=== PATIENT | female | born 1945 | race Caucasian/White ===

== ENCOUNTER 2020-09-09 16:28 | Emergency (ER) | payer OTHER ==
[~2020-09-09] VITALS: Ht 175.3 cm; Wt 72.6 kg
[2020-09-09 17:50] VITALS: BP 131/63
[2020-09-09 18:12] LABS: URINE BILIRUBIN NEGATIVE (Negative); URINE BLOOD TRACE (Negative); URINE CLARITY CLEAR; URINE COLOR YELLOW; URINE GLUCOSE-RANDOM* NEGATIVE (Negative); URINE KETONES NEGATIVE (Negative); URINE NITRITE-REFLEX NEGATIVE (Negative); URINE PROTEIN (DIPSTICK) 2+ (Negative); URINE SPECIFIC GRAVITY 1.015 (1.005-1.035); URINE UROBILINOGEN 0.2 E.U./dl (0.2-1.0)
[2020-09-09 18:13] LABS: URINE LEUKOCYTES-REFLEX 1+ (Negative)
[2020-09-09 18:22] LABS: SQUAMOUS >10 Many /LPF (0-3); URINE WBC-REFLEX 6-15 Few /HPF (0-5)
[2020-09-09 18:23] LABS: CASTS None Seen /LPF (None Seen); CRYSTALS None Seen /LPF (None Seen); URINE RBC 0-2 Rare /HPF (0-2)
[2020-09-09] MEDS ORDERED: BACTRIM DS TAB1 EAC1 PO (18:55)
== END 2020-09-09 19:11 | disposition home or self-care (01) ==
LOC: ER 16:28
PROVIDERS: Nurse Practitioner Family
DX: N39.0 Urinary tract infection, site not specified (principal); Z91.041 Radiographic dye allergy status; Z88.8 Allergy status to other drugs, medicaments and biological substances